=== PATIENT | female | born 1985 | race Caucasian/White ===

== ENCOUNTER 2023-01-24 19:36 | Outpatient (CLI) | payer OTHER ==
[2023-01-24] MEDS ORDERED: LACTATED RINGERS 1,000 ML IV ONE (20:15)
[2023-01-24] MEDS ORDERED: NIFEdipine 10 MG CAP PO ONE ×2 (20:15→21:15)
[2023-01-24] MEDS ORDERED: ACETAMINOPHEN TAB 500 MG TAB PO STA (21:32)
[2023-01-24 22:31] LABS: Appearance,Urine Cloudy (Clear); Bacteria,Urine Few /hpf; Bilirubin,Urine Negative (Negative); Blood,Urine Negative (Negative); Color,Urine Light Yellow; Glucose,Urine (UA) Negative (Negative); Ketones,Urine Negative (Negative); Leukocyte Esterase,Urine Small (Negative); Mucus,Urine Rare /hpf; Nitrite,Urine Negative (Negative); PH, Urine 7.5 (5.0-8.0); Protein,Urine Negative (Negative); RBC,Urine 1 /hpf (0-5); Specific Gravity,Urine 1.012 (1.001-1.035); Squamous Epithelial Cell,Urine 2 /hpf (0-4); Urobilinogen,Urine <2.0 mg/dL (<2.0); WBC,Urine 1 /hpf (0-5)
[2023-01-25 00:08] VITALS: BP 139/77; PULSE 105; RESP 18; TEMP 98.4
--- NOTE | 2023-02-05 12:04 | P.MSEPDOC ---
Presenting Problems - Arrival Data Date of Arrival on Unit: 01/24/23 Time of Arrival on Unit: 19:36 Mode of Transport: Ambulatory - Complaint OB-Reason for Admission/Chief Complaint: Other Comment: Lower back pain since AM, possible labor earlier in the week Medical History - Information : 6 Para: 4 Term: 4 : 0 Abortions: Spontaneous or Elective: 1 Number of Living Children: 4 - Gestational Age Gestational Age by ROMERO (wks/days): 31 Weeks and 6 Days Review of Systems - Review of Systems Constitutional: No problems Breast: No problems ENT: No problems Cardiovascular: No problems Respiratory: No problems Gastrointestinal: No problems Genitourinary: No problems Musculoskeletal: No problems Neurological: No problems Skin: No problems Vital Signs - Temperature Temperature: 98.4 F Temperature Source: Temporal Artery Scan - Pulse Pulse Oximetery Pulse Rate: 105 Pulse Assessment Method: Pulse Oximetry - Respirations Respiratory Rate: 18 Oxygen Delivery Method: Room Air O2 Sat by Pulse Oximetry: 99 - Blood Pressure Right Arm Blood Pressure: 139/77 Blood Pressure Mean: 97 Blood Pressure Source: Automatic Cuff Medical Screen Scoring - Cervical Exam Dilation (cm): 0 Effacement (%): 0 Station: -4 Membranes: Intact - Uterine Contractions Resting: Soft to palpation - Assessment - Baby A Baseline FHR: 135 Heart Rate - NICHD Category: Category I (Normal) NST: Reactive Physician Notification - Physician Notified Physician Notified Date: 01/24/23 Physician Notified Time: 19:50 Physician: Anna Marie Rodriguez Order Received: Yes - Notification Comment Comment: Dr. Rodriguez at bedside, 1 cx graphed so far, orders to start an IV, given 1-2L of. LR, and give 10mg of PO Procardia now. Dr. Rodriguez writing a script for pt to go home with. procardia if her pain settles down. 2114 - Dr. Rodriguez back on unit, update given on no contractions graphed or palpated but. pt continues to complain of pain that is not improved with 2bags of LR and procardia. Orders to give another 10mg of PO procardia now, tylenol, and a heat pack. 2231 WN, orders from Dr. Rodriguez to D/C pt home with her procardia script which. 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 Maternal Triage Index - Maternal Triage Index Presenting for scheduled procedure w/no complaint: No - Stat/Priority 1 Stat Priority 1: No - Urgent/Priority 2 Urgent Priority 2: Yes Provider Notified: Anna Marie Rodriguez Provider Notified Time: 19:50 Criteria Met for Priority 2: 31 5/7wks, low back pain since AM, possible labor earlier this week Disposition - Disposition OB Disposition: Physician follow up in office, Discharge to home Discharge Date: 01/25/23 Discharge Time: 22:44 I agree with the RN Medical Screening Exam: Yes Case reviewed; plan agreed upon as documented in EMR&OBIX.: Yes Diagnosis: FALSE LABOR BEFORE 37 COMPLETED WEEKS OF GEST, THIRD TRI
== END 2023-01-24 22:44 | disposition home or self-care (01) ==
LOC: FBPOP 19:36
PROVIDERS: ATTEND Obstetrics & Gynecology
DX: O47.03 False labor before 37 completed weeks of gestation, third trimester (principal); Z3A.31 31 weeks gestation of pregnancy
CPT/HCPCS: 59025; 96360; 96361; 81001; G0463; 99214

== ENCOUNTER → 2025-01-07 | Outpatient (CLI) | payer OTHER ==
--- NOTE | 2025-01-07 12:08 | MM ---
Reason for Exam: Clinical finding. Baseline mammogram. Indicated Problems: Lump or thickening of the right side for 3 Week(s). Patient History: Menarche at age 15. First Full-Term at age 23. Patient has history of breast feeding. Patient used Hormonal Contraceptives for 5 years. Mother had breast cancer under age 50. Last menstrual period: 12/09/2024 Risk Values: Barb 5 year model risk: 0.8%. NCI Lifetime model risk: 18.6%. Prior Study Comparison: Patient's first Mammogram. Tissue Density: The breasts are extremely dense, which lowers the sensitivity of mammography. Findings: Analyzed By CAD. There is a large mass in the upper outer quadrant right breast measuring 3.3 cm. There is an enlarged lymph node in the axilla measures 4.1 cm. Additional 3 mm nodule in the posterior central margin the right breast. Overall Assessment: Suspicious, BI-RAD 4 Management: Ultrasound Core Biopsy of the right breast. . Results were given to the patient verbally at the time of exam. Patient should continue monthly self-breast exams. A clinical breast exam by your physician is recommended on an annual basis. This exam should not preclude additional follow-up of suspicious palpable abnormalities. Note on Barb scores and lifetime risk: 1. A Barb score greater than 3% is considered moderate risk. If this is the case, consider specialist referral to assess eligibility for a risk reducing agent. 2. If overall lifetime risk for the development of breast cancer is 20% or higher, the patient may qualify for future screening with alternating mammogram and breast MRI. [facility], , 01/07/2025 12:05 PM. Electronically signed and approved by: Vimal Quinteros M.D. Radiologis
== END | disposition home or self-care (01) ==
LOC: RADMAMWWP 10:45
PROVIDERS: ATTEND Family Medicine
DX: R92.343 Mammographic extreme density, bilateral breasts (principal); N63.10 Unspecified lump in the right breast, unspecified quadrant; Z92.0 Personal history of contraception; Z80.3 Family history of malignant neoplasm of breast
CPT/HCPCS: 77066; G0279; 77062

== ENCOUNTER → 2025-01-20 | Day surgery (SDC) | payer OTHER ==
--- NOTE | 2025-01-26 09:02 | MM ---
Reason for Exam: Post Procedure Mammogram. Last screening mammogram was performed less than 1 month ago. Patient History: Menarche at age 15. First Full-Term at age 23. Patient has history of breast feeding. Patient used Hormonal Contraceptives for 5 years. Mother had breast cancer under age 50. Risk Values: Barb 5 year model risk: 0.8%. NCI Lifetime model risk: 18.6%. Prior Study Comparison: 01/07/2025 Bilateral MG 3D diag mammo w/cad [facility], [facility]. Tissue Density: Right: The breasts are extremely dense, which lowers the sensitivity of mammography. Pathology Description: Location: 10 o'clock. 11 cc , 18 gauge needle, Same area as 10:00 core biopsy. Pathology Description: Location: axilla. Marker Left Behind. Needle Type: Mammotome Cores: 5 Gauge: 13 Pathology Description: Location: 10 o'clock. Marker Left Behind. Needle Type: Mammotome Cores: 5 Gauge: 13 Completed scanning of the entire right breast prior to biopsy. The complex solid cystic mass measuring 4.0 cm at 10:00 is identified. The abnormally enlarged axillary nodes measuring up to 3.2 cm is redemonstrated. At the 12:00 periareolar region, either fibrocystic change or duct ectasia measuring up to 2.7 x 1.0 cm is noted. No internal filling defect identified. At the 1:00 position, 6 cm from the nipple, there is a vague hypoechoic area measuring 7 mm. However, on real-time scanning, this area blends with the surrounding fat lobules especially on radial imaging and shows similar adjacent areas on antiradial imaging. Findings suggest normal tissue. No other solid or cystic lesion. The procedure of ultrasound guided core biopsy was explained to the patient. Benefits, alternatives, and risks were discussed. An informed consent was then obtained. The patient was placed in supine positioning for imaging and for the procedure. The overlying skin was prepped and draped in usual sterile fashion. Lidocaine buffered with bicarbonate was used as anesthetic into the skin followed by lidocaine/epinephrine into the subcutaneous tissue at both the 10:00 and axillary sites in turn. SITE A, 10:00 right breast mass: Aspiration: During the anesthetic injection, we noted prominent swirling densities suggesting a prominent cystic component. An 18-gauge needle was advanced under ultrasound guidance and aspiration yielded 11 mL serous sanguinous fluid which is labeled and sent for cytologic analysis. Biopsy: Subsequently, ultrasound guidance, a 13-gauge vacuum-assisted mammotome Elite biopsy gun device was used to obtain 5 core samples of the residual soft tissue. Following this, a wing clip was left in lesion. SITE B, enlarged axillary node: Under ultrasound guidance, a 13-gauge vacuum-assisted mammotome Elite biopsy gun device was used to obtain 5 core samples. Following this, a HydroMark coil clip was left in lesion. The patient tolerated the procedure well without any immediate complication. The patient was kept in the radiology department for short stay after the procedure and then discharged home in stable condition. Postprocedure mammogram: The patient was transferred to mammography for physician ordered post procedure mammogram for clip placement verification. Post procedure mammogram demonstrates wing clip at the site of upper outer quadrant mass. The coil clip within the enlarged axillary node is outside the field of view and cannot be assessed. IMPRESSION: Successful, uncomplicated ultrasound guided: 1) Aspiration and core biopsy of the mixed solid cystic 10:00 right breast mass, possible papillary carcinoma. Both pathology and cytology are pending. 2) Core biopsy of large, abnormal right axillary node. Pathology results to follow. [facility], , 01/20/2025 11:32 AM. Pathology Results: Result: Malignant, Invasive ductal carcinoma. Pathology and radiology were reviewed. Findings are concordant. A. RIGHT BREAST, 10:00, NEEDLE CORE BIOPSY: Invasive poorly differentiated ductal carcinoma (Grade 3) with basal-like and pleomorphic features. See Surgical Pathology Cancer Case Summary and Comment. B. RIGHT AXILLA, CORE BIOPSY: Invasive poorly differentiated ductal carcinoma (Grade 3) with basal-like and pleomorphic features. See Surgical Pathology Cancer Case Summary and Comment. RIGHT BREAST, CYST ASPIRATE: Rare atypical cells in a background of degenerated acute inflammatory cells, macrophages and keratin material consistent with cyst contents. Overall Assessment: Malignant Assessment: MG diagnostic mammo RT wo CAD - Right: Known biopsy proven malignancy, BI-RAD 6. Management: Surgical Consultation of the right breast. Electronically signed and approved by: Augusto Li M.D. Radiologist
== END ==
LOC: RADUSWWP 07:07
PROVIDERS: ATTEND Family Medicine
DX: C50.411 Malignant neoplasm of upper-outer quadrant of right female breast (principal); N60.01 Solitary cyst of right breast; Z92.0 Personal history of contraception; Z80.3 Family history of malignant neoplasm of breast
CPT/HCPCS: 88305; 88173; 88342; 88341; 77065; 76942; 19000; 19083; 19084; A4648

== ENCOUNTER → 2025-01-26 | Outpatient (CLI) | payer OTHER ==
--- NOTE | 2025-01-26 10:22 | P.GSCN ---
History of Present Illness Consult date: 01/26/25 Reason for Consult: right breast invasive ductal cancer Requesting physician: Jose L Bonner History of present illness: Marlene is a 39 year old female with a biopsy proven right breast invasive ductal cancer.[id number] she underwent an ultrasound of the right breast. This revealed in the right breast at 10:00 a 3.1 x 2.7 cm mass at 10:00. An ultrasound-guided biopsy was recommended. She had a bilateral mammogram on 01-07-2025. This revealed a mass in the upper outer quadrant of the right breast 3.3 cm. And an enlarged lymph node in the axilla measuring up to 4.1 cm. Additional 3 mm nodule in the posterior central margin on the right breast. This was not further noted at the time of her biopsy. She underwent an ultrasound guideded core biopsy on . A wing clip was left at the site of the upper outer quadrant mass and was in the correct location. The coil clip and the enlarged axillary node was outside the [id number] on the diagnostic mammogram and could not be assessed. The 10:00 lesion in the breast revealed invasive poorly differentiated ductal carcinoma grade 3 with basal like and pleomorphic features. This was triple negative. She additionally underwent a right axillary core biopsy which was positive for invasive poorly differentiated ductal carcinoma. Her mammogram and ultrasound were personally discussed and reviewed with DR. Root. He has recommended spot compression view for the three mm lesion seen on the CC view. She was showering about 1 month ago ant felt the spot in her right axilla. From there she had an annual visit wt Dr. Bonner, and the work up began. She is breast feeding and she thought is was a clogged milk duct. She only feels the lesion in her breast not under her arm. She states it is tender with the seat belt. She has been breast feeding for two years. caffeine: 4 cups/day nicotine: stopped 10 years ago, used to smoke 3 cigarettes/day for 5 eyars chocolate: weekly BCP: used for about 5 years hormone: none Family History: mother: DCIS paternal grandmother: bilateral mastectomy paternal grandfather: prostate cancer Hormonal History: menarche: 14 M1, breast fed: all five, age at first : 23 periods: regular last one heavy; January 12, 2025 Surgical History; pilonidal cyst removal Medical History: cyst on her right ovary Social History: nicotine: as above alcohol:occasional drugs: none Review of Systems - Constitutional Denies fever, Denies weight loss - EENT Eyes: denies blurred vision Ears: deny: decreased hearing, tinnitus Ears, nose, mouth and throat: Denies dysphagia - Breasts bilateral: as per HPI - Cardiovascular Denies chest pain, Denies shortness of breath - Respiratory Denies cough, Denies 7 - Gastrointestinal Reports as per HPI - Genitourinary Genitourinary: Denies dysuria, Denies hematuria Menstruation: Reports as per HPI - Musculoskeletal Reports as per HPI - Integumentary Denies rash, Denies unusual bruising - Neurological Denies headaches, Denies syncope - Psychiatric Reports as per HPI - Endocrine Reports fatigue - Hematologic/Lymphatic Denies easy bleeding, Denies easy bruising - Allergic/Immunologic Reports as per HPI Past Medical History Past Medical History: No Reported History History of Any Multi-Drug Resistant Organisms: None Reported Additional Past Surgical History / Comment(s): pilonidol cyst removed 2014 Past Anesthesia/Blood Transfusion Reactions: No Reported Reaction Past Psychological History: No Psychological Hx Reported Smoking Status: Former smoker Past Alcohol Use History: None Reported Additional Past Alcohol Use History / Comment(s): quit smoking 2014 Past Drug Use History: None Reported Medications and Allergies Home Medications Medication Instructions Recorded Confirmed Type Dextroamphetamine/Amphetamine 15 mg PO DAILY 01/10/25 01/10/25 History [Adderall Xr 15 mg Capsule] Allergies Allergy/AdvReac Type Severity Reaction Status Date / Time No Known Allergies Allergy Verified 01/10/25 13:49 Surgical - Exam - General moderate distress - Eyes normal ocular movement - ENT no hearing loss - Neck trachea midline - Respiratory normal respiratory effort, clear to auscultation - Cardiovascular Rhythm: regular Heart Sounds: normal: S1, S2 - Abdomen Abdomen: soft, non tender, no guarding, no rigid, no rebound - Integumentary normal turgor - Neurologic no disoriented, no combative - Musculoskeletal normal gait - Psychiatric oriented to time, oriented to person, oriented to place, speech is normal, memory intact Breast Exam: BRA: 36D inspection: Right nipple inversion, right breast appears to be more swollen and slightly smaller than the left breast, left breast grade 3 ptosis Palpation: Right breast: Multi positional exam fullness upper outer quadrant the area of concern is approximately 8 cm in size No other dominant masses or nodules of concern Right axilla: Positive enlarged axillary node approximately 4 cm in size freely mobile Left breast: Multi positional exam fullness secondary to breast-feeding but no discrete dominant masses or nodules of concern Left axilla: No adenopathy of concern Results Mammogram and ultrasound personally reviewed with Dr. Root and discussed with him, there was initially on the mammogram of 01-07-2025 and additional 3 mm nodule in the posterior central margin of the right breast. This could only be seen on the cc view. He has recommended spot compression views of this site. Assessment and Plan Assessment: Impression: 1. Biopsy-proven right breast invasive ductal carcinoma triple negative, positive lymph node 2. Questionable 3 mm area additionally noted in the right breast in the posterior central margin Plan: 1. Appointment with medical oncology 2. Spot compression views of the right breast, at this time the patient may not be able to tolerate it secondary to the swelling in the breast 3. Presentation of case at tumor board CC: Dr. Bonner
[2025-01-26 10:37] VITALS: BP 123/81; PULSE 96; RESP 16; TEMP 98.1
== END ==
LOC: WWCWWP 09:38
PROVIDERS: ATTEND Surgery
DX: C50.411 Malignant neoplasm of upper-outer quadrant of right female breast (principal)

== ENCOUNTER → 2025-01-27 | Outpatient (CLI) | payer OTHER ==
--- NOTE | 2025-01-27 08:18 | MM ---
Reason for Exam: Screening (asymptomatic). Last screening mammogram was performed less than 1 month ago. Patient History: Menarche at age 15. First Full-Term at age 23. Patient has history of breast feeding. Breast cancer, right, age 39. Patient used Hormonal Contraceptives for 5 years. 01/20/2025, US breast aspiration single RT on the Right side. 01/20/2025, US biopsy breast add'l VAD RT on the Right side. 01/20/2025, Malignant US biopsy breast VAD RT on the right side. Mother had breast cancer under age 50. Prior Study Comparison: 01/07/2025 Bilateral MG 3D diag mammo w/cad [facility], [facility]. 01/20/2025 Right MG diagnostic mammo RT wo CAD, [facility]. Tissue Density: Right: The breasts are extremely dense, which lowers the sensitivity of mammography. Findings: Analyzed By CAD. Patient has biopsy-proven malignancy upper outer quadrant right breast. Within the far posterior right breast is to be a feeding vessel seen medially and above the level of the nipple approximately 10 cm from the nipple. Precautionary six-month follow-up is advised. Overall Assessment: Known biopsy proven malignancy, BI-RAD 6 Management: Diagnostic Mammogram of the right breast in 6 months. . Results were given to the patient verbally at the time of exam. Patient should continue monthly self-breast exams. A clinical breast exam by your physician is recommended on an annual basis. This exam should not preclude additional follow-up of suspicious palpable abnormalities. Note on Barb scores and lifetime risk: 1. A Barb score greater than 3% is considered moderate risk. If this is the case, consider specialist referral to assess eligibility for a risk reducing agent. 2. If overall lifetime risk for the development of breast cancer is 20% or higher, the patient may qualify for future screening with alternating mammogram and breast MRI. [facility], , 01/27/2025 8:14 AM. Electronically signed and approved by: Jairo Kat M.D. Radiologis
== END | disposition home or self-care (01) ==
LOC: RADMAMWWP 07:38
PROVIDERS: ATTEND Surgery
DX: Z53.9 Procedure and treatment not carried out, unspecified reason (principal)

== ENCOUNTER → 2025-01-31 | Outpatient (CLI) | payer OTHER ==
--- NOTE | 2025-01-31 12:13 | CT ---
EXAMINATION TYPE: CT ChestAbdPelvis w con DATE OF EXAM: 01/31/2025 11:44 AM COMPARISON: Mammography, ultrasound. CLINICAL INDICATION: Female, 39 years old with history of C50.411 BR CANCER; [facility], BREAST CA Technique: CT ChestAbdPelvis w con; Multiple axial images were obtained. Two-dimensional coronal and sagittal reconstructions were obtained. Contrast used:100 ML mL of Isovue 300 with IV Contrast, (None if empty) Oral contrast used: with Oral Contrast CT DLP: 1312.6 mGycm, Automated exposure control for dose reduction was used. Findings: CHEST: LUNGS/ PLEURA: No focal consolidation, pneumothorax or pleural effusion. AIRWAY: Patent and unremarkable. HEART: Size within normal limits. No significant coronary artery calcifications. MEDIASTINUM: No gross evidence of adenopathy. VASCULATURE: No aortic aneurysm. MUSCULOSKELETAL: No acute osseous abnormalities. Sclerosis of the anterior superior endplate of the T 12 vertebral body possibly a degenerative basis. SOFT TISSUES/LYMPH NODES: Postprocedural changes right breast with 13 mm partially cystic mass in the posterior aspect of the right breast. Large right axillary lymph node measuring up to 29 mm.r there are at least right breast skin thickeni ng up to 7 mm. couple prominent subpectoral lymph nodes measuring up to 10 mm series 3 image 12.r pos sible small right internal mammary gland lymph nodes present series 3 image 27 measuring 2 mm. LOWER NECK: No significant findings. ABDOMEN: ABDOMEN LIVER: Unremarkable GALLBLADDER AND BILE DUCTS: Unremarkable. PANCREAS: Unremarkable. SPLEEN: Unremarkable. ADRENAL GLANDS: Unremarkable. KIDNEYS AND URETERS: No evidence of hydronephrosis or obstructing renal calculus. The ureters are unr emarkable. PELVIS BLADDER: Unremarkable REPRODUCTIVE: Unremarkable. ABDOMEN & PELVIS STOMACH AND BOWEL: No evidence of bowel obstruction. PERITONEUM/RETROPERITONEUM: No evidence of pneumoperitoneum or free fluid. VASCULATURE: No evidence of aortic aneurysm. MUSCULOSKELETAL: No acute osseous abnormalities LYMPH NODES: No gross evidence for lymphadenopathy. SOFT TISSUE/ABDOMINAL WALL: Unremarkable IMPRESSION: 1. Evidence of postprocedural changes right breast partially cystic right breast mass and enlarged r ight axillary/subpectoral lymph nodes compatible with malignancy and metastatic disease. 2. Possible early metastatic disease with a prominent possible lymph node in the right internal mamm belinda chain. [facility], , 01/31/2025 12:11 PM
--- NOTE | 2025-01-31 14:57 | NM ---
INDICATION: Patient age:Female; 39 years old; Reason for study: C50.411 BR CANCER; [facility]. COMPARISON: CT chest and pelvis 01/31/2025. TECHNIQUE: Intravenous administration of 24.4 mCi of Technetium 99m-Medronate followed by multiple sc intigraphic images of the appendicular and axial skeleton. Lastly, small [id number] anterior, post erior and lateral views of the chest were submitted for review. FINDINGS: No abnormal uptake is identified within the appendicular or axial skeleton to suggest metastatic dise ase. No photopenic areas or areas of increased activity are identified. Physiologic radiotracer activity is demonstrated in the kidneys and bladder. IMPRESSION: Nothing to suggest metastatic disease. [facility], , 01/31/2025 2:55 PM
== END | disposition home or self-care (01) ==
LOC: RADNMMAIN 09:10
PROVIDERS: ATTEND Internal Medicine Hematology & Oncology
DX: Z03.89 Encounter for observation for other suspected diseases and conditions ruled out (principal); C50.411 Malignant neoplasm of upper-outer quadrant of right female breast; N63.10 Unspecified lump in the right breast, unspecified quadrant; R59.0 Localized enlarged lymph nodes
CPT/HCPCS: 71260; 74177; 78306; A9503; Q9967

== ENCOUNTER → 2025-02-01 | Outpatient (CLI) | payer OTHER ==
--- NOTE | 2025-02-01 22:39 | MR ---
EXAMINATION TYPE: MR brain wo/w con DATE OF EXAM: 02/01/2025 8:06 PM COMPARISON: None. CLINICAL INDICATION: Female, 39 years old with history of C50.411, Breast cancer. TECHNIQUE: Multiplanar, multiecho imaging on a 3.0 Katya magnet is performed through the brain. Stud y is performed within 24 hours of arrival to the hospital.Multiplanar, multiecho imaging on a 3.0 Tangela la magnet is performed through the knee. IV Contrast: 8.5 mL Gadobutrol (None, if empty) FINDINGS: The craniovertebral junction is normal. The pituitary is normal. Diffusion-weighted imaging is performed. No abnormal hyperintensity is present to suggest an acute i ntracranial infarct or acute ischemic change. Signal through the brain is unremarkable. Following contrast administration no abnormal enhancement i s evident. Ventricles and sulci are appropriate for the patient age. Mucosal thickening is maxillary sinuses. Septal deviation is noted towards the right. Mucosal thicken ing is within ethmoid air cells and frontal sinuses. Remaining paranasal sinuses and mastoid air cell s are clear. Calvarium appears intact IMPRESSION: 1. No suspicious changes to suggest metastatic disease. 2. Mild chronic sinusitis. [facility], , 02/01/2025 10:36 PM
== END | disposition home or self-care (01) ==
LOC: RADMRIMAIN 19:19
PROVIDERS: ATTEND Internal Medicine Hematology & Oncology
DX: C50.411 Malignant neoplasm of upper-outer quadrant of right female breast (principal); J32.9 Chronic sinusitis, unspecified
CPT/HCPCS: 70553; A9585

== ENCOUNTER → 2025-02-03 | Outpatient (CLI) | payer OTHER ==
--- NOTE | 2025-02-03 10:45 | CA ---
Transthoracic Echo Report Name: Marlene Gonzalez Age: 39 Gender: F : 1985 Exam Date: 02/03/2025 09:21 Exam Location: [facility] Ht (in): 63 Wt (lb): 190 Ordering Physician: Giorgi Hall MD Attending/Referring Phys: Lathe Mechanic Lorin Muir RDCS Procedure CPT: Indications: Z01.818 pre chemo Cardiac Hx: Technical Quality: Good Contrast 1: Total Dose (mL): Contrast 2: Total Dose (mL): MEASUREMENTS (Male / Female) Normal Values 2D ECHO LV Diastolic Diameter PLAX 4.5 cm 4.2 - 5.9 / 3.9 - 5.3 cm LV Systolic Diameter PLAX 2.8 cm IVS Diastolic Thickness 1.0 cm 0.6 - 1.0 / 0.6 - 0.9 cm LVPW Diastolic Thickness 0.9 cm 0.6 - 1.0 / 0.6 - 0.9 cm LV Relative Wall Thickness 0.4 RV Internal Dim ED PLAX 2.3 cm LA Systolic Diameter LX 3.4 cm 3.0 - 4.0 / 2.7 - 3.8 cm LV Diastolic Volume MOD BP 88.3 cm??? 67 - 155 / 56 - 104 cm??? LV Systolic Volume MOD BP 31.4 cm??? 22 - 58 / 19 - 49 cm??? LV Ejection Fraction MOD BP 64.5 % >= 55 % LV Cardiac Index MOD BP 2228.6 cm???/min???m??? LV Diastolic Volume MOD 4C 99.7 cm??? LV Systolic Volume MOD 4C 34.5 cm??? LV Ejection Fraction MOD 4C 65.4 % LV Cardiac Index MOD 4C 2550.7 cm???/min???m??? LV Diastolic Length 4C 8.1 cm LV Systolic Length 4C 6.1 cm LV Diastolic Volume MOD 2C 64.8 cm??? LV Systolic Volume MOD 2C 27.1 cm??? LV Ejection Fraction MOD 2C 58.1 % LV Cardiac Index MOD 2C 1474.8 cm???/min???m??? LV Diastolic Length 2C 6.7 cm LV Systolic Length 2C 5.8 cm M-MODE Aortic Root Diameter MM 2.8 cm LA Systolic Diameter MM 3.1 cm LA Ao Ratio MM 1.1 AV Cusp Separation MM 1.8 cm DOPPLER AV Peak Velocity 129.3 cm/s AV Peak Gradient 6.7 mmHg Mitral E Point Velocity 83.1 cm/s Mitral A Point Velocity 58.3 cm/s Mitral E to A Ratio 1.4 MV Deceleration Time 270.8 ms MV E' Velocity 7.1 cm/s Mitral E to MV E' Ratio 11.8 TR Peak Velocity 196.7 cm/s TR Peak Gradient 15.5 mmHg FINDINGS Left Ventricle Left ventricular ejection fraction is estimated at 55-60 %. Normal Left ventricular size, wall thickness, systolic function with no obvious regional wall motion abnormalities. Normal Left ventricular diastolic filling pattern. Average global longitudinal strain of the left ventricle with a value of - 19.7 %. Right Ventricle Normal right ventricular size and function. Right ventricular systolic pressure within normal limits. Right Atrium Normal right atrial size. Left Atrium Normal left atrial size. Mitral Valve Structurally normal mitral valve. Mild mitral regurgitation. No mitral stenosis. Aortic Valve Trileaflet aortic valve. Trace to mild aortic regurgitation. No aortic stenosis. Tricuspid Valve Structurally normal tricuspid valve. No tricuspid stenosis. Trace tricuspid regurgitation. Pulmonic Valve Structurally normal pulmonic valve. No pulmonic stenosis. Pericardium No pericardial or pleural effusion. Aorta Normal size aortic root and proximal ascending aorta. CONCLUSIONS 1. Normal left ventricular size and systolic function 2. Average global longitudinal strain -19.7% 3. Mild mitral with trace to mild aortic regurgitation Previewed by: Dr. Geni Emery MD (Electronically Signed) Final Date: 03 February 2025 10:35
== END | disposition home or self-care (01) ==
LOC: RADECHMAIN 09:04
PROVIDERS: ATTEND Internal Medicine Hematology & Oncology
DX: Z01.818 Encounter for other preprocedural examination (principal)
CPT/HCPCS: 93306

== ENCOUNTER → 2025-02-11 | Outpatient (CLI) | payer OTHER ==
--- NOTE | 2025-02-16 17:51 | MR ---
EXAMINATION TYPE: MR MRCP DATE OF EXAM: 02/11/2025 12:29 PM COMPARISON: Pet/CT 02/02/2025. CLINICAL INDICATION: Female, 39 years old with history of C50.411 MALIG NEOPLM OF UPPER-OUTER QUADRAN T OF RI; PHH, Abnormal PET scan in pacs, Breast CA TECHNIQUE: Multi planar, T2-weighted imaging with and without fat saturation and chemical shift imag ing was performed of the abdomen. Then, heavily T2 weighted imaging (half-Fourier acquisition single- shot turbo spin-echo) was utilized in order to study the biliary system. Maximum intensity projectio n images were reconstructed from the original data of the biliary tree. 3D images were created on a [employer] work station. No Gadolinium given. FINDINGS: Lower Thorax: Complex right breast mass with high T2 cystic change measuring 46 x 45 mm enlarged righ t axillary lymph node measuring up to 27 mm in short axis. Both of these findings were seen on prior PET/CT. Internal mammary chain lymph node on the right is not the [id number] which was FDG avid. M ultiple dilated ducts or cystic changes are seen in the bilateral breasts. MRCP: * The intrahepatic ducts have a normal appearance. * The extrahepatic ducts have a normal appearance. * The common hepatic duct measures 3 mm in size. * The common bile duct at the level of the pancreatic head measures 4rr mm in size. * The pancreatic duct is normal. * The gallbladder appears unremarkable. Abdomen: Liver: No evidence for hepatic steatosis or cirrhosis. Pancreas: No ductal dilation. No evidence for solid mass. Area of FDG activity on pet/CT does not cor relate with any signal abnormality in the pancreas. Spleen: Normal for size. Adrenal glands: Unremarkable. Kidneys: No evidence for obstructive uropathy. No suspicious renal masses. Stomach and Bowel: No evidence for bowel wall thickening or evidence for obstruction. Retroperitoneum/Peritoneum: No evidence of pneumoperitoneum or free fluid. Vasculature: No aortic aneurysm. Musculoskeletal: The osseous structures appear intact. No abnormal osseous bone marrow signal to sugg est metastatic disease. Lymph Nodes: No gross evidence for lymphadenopathy. Abdominal wall: Unremarkable. IMPRESSION: 1. Area of FDG activity on pet/CT does not correlate with any signal abnormality in the pancreas it was likely artifactual on prior PET/CT. Attention follow-up imaging. 2. No evidence for metastatic disease below the diaphragm. 3. Bone marrow signal is relatively unremarkable suggesting artifact on prior PET/CT. 4. Right breast mass with right axillary lymphadenopathy compatible with malignancy and prior pet/CT 01/30/2025. 5. No evidence to suggest ductal stricture, choledocholithiasis, or biliary ductal dilatation. [facility], , 02/16/2025 5:49 PM
== END | disposition home or self-care (01) ==
LOC: RADMRIMAIN 11:22
PROVIDERS: ATTEND Internal Medicine Hematology & Oncology
DX: C50.411 Malignant neoplasm of upper-outer quadrant of right female breast (principal); R59.0 Localized enlarged lymph nodes
CPT/HCPCS: 74181

== ENCOUNTER 2025-02-14 10:07 | Day surgery (SDC) | payer OTHER ==
[~2025-02-14 10:07] MED LIST: MIDAZOLAM 2 MG/2 ML VIAL IV PRN; Pre Op ABX Message 1 EACH MISC MISCELLANE ONE; SCOPOLAMINE 1 MG/72 HR PATCH TRANSDERM ONE
[2025-02-14] MEDS: IV FLUID CONTINUATION 1,000 ML IV ONE (10:28)
--- NOTE | 2025-02-14 10:39 | P.GSHP ---
History of Present Illness H&P Date: 02/14/25 Chief Complaint: Right breast cancer 39-year-old female diagnosed recently with right breast cancer. Patient to initiate neoadjuvant chemotherapy for treatment. This will be starting in the next few weeks. Here today for Port-A-Cath placement. Past Medical History Past Medical History: Cancer Additional Past Medical History / Comment(s): right breast ca diagnosed 01/25/25 History of Any Multi-Drug Resistant Organisms: None Reported Additional Past Surgical History / Comment(s): pilonidol cyst removed 2014, malignant needle bx right breast & lymph node Past Anesthesia/Blood Transfusion Reactions: No Reported Reaction Smoking Status: Former smoker Medications and Allergies Home Medications Medication Instructions Recorded Confirmed Type Dextroamphetamine/Amphetamine 15 mg PO DAILY 01/10/25 02/14/25 History [Adderall Xr 15 mg Capsule] Cholecalciferol [Vitamin D3 (25 25 mcg PO DAILY 01/26/25 02/14/25 History Mcg = 1000 Iu)] Multivitamin [Multivitamins Adult 1 tab PO DAILY 01/26/25 02/14/25 History Gummies] ALPRAZolam [Xanax] 0.5 mg PO TID PRN 02/10/25 02/14/25 History Escitalopram [Lexapro] 10 mg PO DAILY 02/10/25 02/14/25 History Allergies Allergy/AdvReac Type Severity Reaction Status Date / Time No Known Allergies Allergy Verified 02/14/25 10:31 Surgical - Exam Vital Signs Temp Pulse Resp BP Pulse Ox 97.0 F L 79 16 125/73 100 02/14/25 10:29 02/14/25 10:29 02/14/25 10:29 02/14/25 10:29 02/14/25 10:29 Physical exam: General: Well-developed, well-nourished HEENT: Normocephalic, sclerae nonicteric Abdomen: Nontender, nondistended Extremities: No edema Neuro: Alert and oriented Assessment and Plan (1) Breast cancer, right Narrative/Plan: Will proceed with Port-A-Cath placement at this time. Risks of bleeding, infection, DVT, pneumothorax, catheter malfunction, anesthesia related complications were discussed. The patient understands and wishes to proceed. Current Visit: Yes Status: Acute Code(s): C50.911 - MALIGNANT NEOPLASM OF UNSP SITE OF RIGHT FEMALE BREAST SNOMED Code(s): 741280807
[2025-02-14] MEDS: ACETAMINOPHEN TAB 500 MG TAB PO PRN (10:51)
[2025-02-14] MEDS: ONDANSETRON 4 MG/2 ML VIAL IVP ONE (11:01)
[2025-02-14] MEDS: LACTATED RINGERS 1,000 ML IV SCH (11:01)
[2025-02-14] MEDS: DEXAMETHASONE SOD PHOSPHATE 4 MG/ML 1 ML VIAL IV ONE (11:02)
[2025-02-14] MEDS: HEPARIN SODIUM,PORCINE 5,000 UNIT/ML 1 ML VIAL SQ PRN (11:04)
[2025-02-14] MEDS ORDERED: fentaNYL (PF) 50 MCG/ML 2 ML AMP ONE (11:42)
[2025-02-14] MEDS ORDERED: MIDAZOLAM 2 MG/2 ML VIAL ONE (11:42)
[2025-02-14] MEDS ORDERED: PROPOFOL 10 MG/ML 20 ML VIAL IV ONE (11:42)
[2025-02-14] MEDS ORDERED: LIDOCAINE 1% INJ 10MG/ML (20 ML MDV) ONE (11:42)
[2025-02-14] MEDS: ceFAZolin 1,000 MG VIAL IVPB ONE ×2 (11:45→12:06)
[2025-02-14] MEDS: BUPIVACAINE (PF) 0.25% 30 ML VIAL SQ ONE (12:11)
--- NOTE | 2025-02-14 12:51 | FL ---
EXAMINATION TYPE: FL guided central line placemt DATE OF EXAM: 02/14/2025 FLUOROSCOPY insertion of Mediport, fluoro time: 11 seconds, DAP: [id number] one image is submitted. [facility], Workstation: [id number], 02/14/2025 12:48 PM
[2025-02-14] MEDS ORDERED: NALOXONE 0.4 MG/ML 1 ML VIAL IV PRN (12:52)
[2025-02-14] MEDS ORDERED: traMADol 50 MG TAB PO PRN (12:52)
--- NOTE | 2025-02-14 12:55 | P.OP ---
Date of Procedure: 02/14/25 Procedure(s) Performed: PREOPERATIVE DIAGNOSIS: Right breast cancer POSTOPERATIVE DIAGNOSIS: Same PROCEDURE: Port-A-Cath placement with fluoroscopic and ultrasound guidance SURGEON: Zuleika EBL: 5 cc ANESTHESIA: General COMPLICATIONS: None OPERATIVE PROCEDURE: Patient was brought and placed on the operative table in the supine position. The patient was placed under general anesthesia at that time. The chest and neck were prepped and draped in usual sterile fashion. The ultrasound probe was used to identify the location of the left internal jugular vein. The skin was localized with lidocaine. The Seldinger needle was advanced into the IJ under ultrasound guidance. The wire was advanced through the needle under fluoroscopic guidance into the superior vena cava. A port pocket was created in the left infraclavicular location. The catheter was tunneled from the wire entrance site to the port pocket. The port was then connected to the catheter. The dilator introducer was threaded over the guidewire. The guidewire and dilator were then removed. The catheter was advanced through the introducer and introducer was then removed. The tip was seen to be in the right atrial junction via fluoroscopy. A picture of the radiograph showing the tip of the catheter was taken. Port was flushed with both saline and a Hep-Lock solution. There was good flow both in and out of the port. The port was sutured in underlying tissues using 3-0 silk sutures. The subcutaneous tissues were reapproximated using 3-0 Vicryl sutures and the skin at both locations using 4-0 Monocryl sutures. Skin glue and sterile dressings then applied. DISPOSITION: Stable to recovery room
[2025-02-14 12:57] VITALS: TEMP 97.3
[2025-02-14 13:06] VITALS: RESP 16
[2025-02-14] MEDS: HYDROmorphone 0.5 MG/0.5 ML SYRINGE IVP PRN (13:18)
--- NOTE | 2025-02-14 13:20 | XR ---
EXAMINATION TYPE: XR chest 1V confirm line [facility] DATE OF EXAM: 02/14/2025 COMPARISON: NONE CLINICAL INDICATION: Female, 39 years old with history of Check line placement; TECHNIQUE: Single frontal view of the chest is obtained. FINDINGS: Heart normal size. Aorta and pulmonary vasculature within normal limits. Left anterior jerrica st wall injection port with catheter tip at the upper right atrium. No consolidation or pleural effus ion. IMPRESSION: No acute process. [facility], , 02/14/2025 1:18 PM
[2025-02-14] MEDS: KETOROLAC 15 MG/ML 1 ML VIAL IVP STA (14:48)
[2025-02-14 15:16] VITALS: BP 126/84; PULSE 76
== END 2025-02-14 15:19 | disposition home or self-care (01) ==
LOC: OR 10:07
PROVIDERS: ATTEND Surgery
DX: C50.911 Malignant neoplasm of unspecified site of right female breast (principal); F41.9 Anxiety disorder, unspecified; F32.A Depression, unspecified; Z87.891 Personal history of nicotine dependence; Z79.899 Other long term (current) drug therapy
CPT/HCPCS: 77001; 36561; J1644; J1100; J2405; J0690; J1642; J1885; J1171; J0665; 81025